=== PATIENT | male | born 1995 | race Caucasian/White ===

== ENCOUNTER 2021-02-19 15:56 | Emergency (ER) | payer BC ==
[2021-02-19] MEDS ORDERED: Ibuprofen 600 MG Tab PO ONE (17:19)
--- NOTE | 2021-02-19 17:22 | EDM.PDOC ---
<Gordo Nieves - Last Filed: 02/19/21 17:22> ED HPI GENERAL MEDICAL PROBLEM - General Chief Complaint: Gastrointestinal Problem Stated Complaint: WAS SEEN IN [facility]/HAS HERNIA Time Seen by Provider: 02/19/21 16:52 - History of Present Illness INITIAL COMMENTS - FREE TEXT/NARRATIVE: Patient presents complaining of left testicular pain and swelling. The patient's states he is always had somewhat of an enlarged left testicle may be 25%. During a routine exam the primary care practitioner found this and advised him to get a follow-up ultrasound and MRI before his next yearly appointment. This incidentally happened to be about 2 weeks ago. There is evidence of variceal and hernia that was supposedly seen on MRI and ultrasound. At that time the scrotum has been slowly enlarging. Over the last couple of days there was significant increase in some pain. No vomiting. Unchanged bowel movements. No fevers. No pain with urination. No discharge. Moderate discomfort without exacerbating or alleviating factors BLQ/scrotum Pain Score (Numeric/FACES): 6 - Related Data Allergies Allergy/AdvReac Type Severity Reaction Status Date / Time No Known Allergies Allergy Verified 02/19/21 16:46 Home Meds: Home Meds . [No Known Home Meds] 02/19/21 [History] Past Medical History HEENT History: Reports: Epistaxis Cardiovascular History: Reports: None Respiratory History: Reports: None Gastrointestinal History: Reports: None Genitourinary History: Reports: Other (See Below) Other Genitourinary History: varicocele Musculoskeletal History: Reports: None Neurological History: Reports: None Psychiatric History: Reports: None Endocrine/Metabolic History: Reports: None Hematologic History: Reports: None Immunologic History: Reports: None Oncologic (Cancer) History: Reports: None Dermatologic History: Reports: None - Infectious Disease History Infectious Disease History: Reports: None - Past Surgical History Head Surgeries/Procedures: Reports: None HEENT Surgical History: Reports: Other (See Below) Other HEENT Surgeries/Procedures: nose caterization Male Surgical History: Reports: None Social & Family History - Family History Family Medical History: No Pertinent Family History - Tobacco Use Tobacco Use Status *Q: Never Tobacco User Second Hand Smoke Exposure: No - Caffeine Use Caffeine Use: Reports: Coffee - Recreational Drug Use Recreational Drug Use: No ED ROS GENERAL - Review of Systems Review Of Systems: See Below Constitutional: Denies: Fever, Chills GI/Abdominal: Denies: Abdominal Pain, Nausea, Vomiting : Denies: Discharge, Dysuria, Flank Pain, Hematuria Musculoskeletal: Denies: Joint Pain Skin: Denies: Rash Neurological: Reports: No Symptoms Hematologic/Lymphatic: Reports: No Symptoms ED EXAM, GENERAL - Physical Exam Exam: See Below Free Text/Narrative:: CONSTITUTIONAL: well appearing in no acute distress SKIN: dry, and intact without rash HENT: Normocephalic, atraumatic, NECK: normal range of motion PULMONARY: normal chest rise and fall, no respiratory distress or stridor GI: Soft, nontender no guarding or rebound or rigidity : Patient has a large testicle on the left side. There is no definitive abnormal lie. There is no erythema to the testicle or the perineum. No marked tenderness NEUROLOGIC: normal speech, moves all extremities, grossly non-focal MUSCULOSKELETAL: no gross deformities, atraumatic PSYCHIATRIC: normal mood and affect Departure - Departure Disposition: Home, Self-Care 01 Clinical Impression: Scrotal pain, Scrotal swelling - Discharge Information Instructions: Scrotal Swelling Referrals: PCP,None [Primary Care Provider] - Forms: ED Department Discharge Additional Instructions: Kassie a disc of your ultrasound to your doctor and have him refer you to the urologist. The radiologist recommends a CT of your scrotum before the urology visit. Return if there is swelling and discoloration with intense pain or fever. [facility] - [facility] [address] [place] [address] [place] [address] The following information is given to patients seen in the emergency department who are being discharged to home. This information is to outline your options for follow-up care. We provide all patients seen in our emergency department with a follow-up referral. The need for follow-up, as well as the timing and circumstances, are variable depending upon the specifics of your emergency department visit. If you don't have a primary care physician on staff, we will provide you with a referral. We always advise you to contact your personal physician following an emergency department visit to inform them of the circumstance of the visit and for follow-up with them and/or the need for any referrals to a consulting specialist. The emergency department will also refer you to a specialist when appropriate. This referral assures that you have the opportunity for follow-up care with a specialist. All of these measure are taken in an effort to provide you with optimal care, which includes your follow-up. Under all circumstances we always encourage you to contact your private physician who remains a resource for coordinating your care. When calling for follow-up care, please make the office aware that this follow-up is from your recent emergency room visit. If for any reason you are refused follow-up, please contact the [facility] Emergency Department at and asked to speak to the emergency department charge nurse. Sepsis Event Note (ED) - Evaluation Sepsis Screening Result: No Definite Risk <Hitesh Fitzpatrick - Last Filed: 02/19/21 19:55> Course - Vital Signs Text/Narrative:: 1954 hrs. the patient is in no acute distress. There is appears to be scar tissue or some of the swelling but could be mesenteric fat herniation in the left scrotum. Patient uses to have a physician refer him to urology in [place] and he is informed that he needs a CT first according to our radiologist. Last Recorded V/S: Last Vital Signs Temp 36.4 C 02/19/21 16:47 Pulse 80 02/19/21 16:47 Resp 18 02/19/21 16:47 BP 139/98 H 02/19/21 16:47 Pulse Ox 98 02/19/21 16:47 - Orders/Labs/Meds Orders: Active Orders 24 hr Category Date Time Status Scrotum and Contents [US] Stat Exams 02/19/21 17:33 Taken CHLAMYDIA AND GONORRHEA BY [facility] Stat Lab 02/19/21 17:17 Ordered Labs: Laboratory Tests 02/19/21 02/19/21 02/19/21 Range/Units 17:45 17:46 17:46 WBC 8.29 (4.0-11.0) K/uL RBC 5.85 (4.50-5.90) M/uL Hgb 18.0 H (13.0-17.0) g/dL Hct 49.3 (38.0-50.0) % MCV 84.3 (80.0-98.0) fL MCH 30.8 (27.0-32.0) pg MCHC 36.5 (31.0-37.0) g/dL RDW Std Deviation 37.9 (28.0-62.0) fl RDW Coeff of Justine 13 (11.0-15.0) % Plt Count 202 (150-400) K/uL MPV 10.90 (7.40-12.00) fL Neut % (Auto) 70.3 (48.0-80.0) % Lymph % (Auto) 18.6 (16.0-40.0) % [place] % (Auto) 8.9 (0.0-15.0) % Eos % (Auto) 1.7 (0.0-7.0) % Baso % (Auto) 0.5 (0.0-1.5) % Neut # (Auto) 5.8 H (1.4-5.7) K/uL Lymph # (Auto) 1.5 (0.6-2.4) K/uL [place] # (Auto) 0.7 (0.0-0.8) K/uL Eos # (Auto) 0.1 (0.0-0.7) K/uL Baso # (Auto) 0.0 (0.0-0.1) K/uL Nucleated RBC % 0.0 /100WBC Nucleated RBCs # 0 K/uL Sodium 138 (136-148) mmol/L Potassium 4.3 (3.5-5.1) mmol/L Chloride 100 (98-107) mmol/L Carbon Dioxide 28.8 (21.0-32.0) mmol/L BUN 11 (7.0-18.0) mg/dL Creatinine 1.0 (0.8-1.3) mg/dL Est Cr Clr Drug Dosing 136.14 mL/min Estimated GFR (MDRD) > 60.0 ml/min Glucose 83 (74-106) mg/dL Lactic Acid (0.4-2.0) mmol/L Calcium 9.2 (8.5-10.1) mg/dL Total Bilirubin 0.7 (0.2-1.0) mg/dL AST 32 (15-37) IU/L ALT 49 (14-63) IU/L Alkaline Phosphatase 71 (46-116) U/L Total Protein 8.3 H (6.4-8.2) g/dL Albumin 5.1 H (3.4-5.0) g/dL Globulin 3.2 (2.6-4.0) g/dL Albumin/Globulin Ratio 1.6 (0.9-1.6) Urine Color YELLOW Urine Appearance CLEAR Urine pH 6.5 (5.0-8.0) Ur Specific Salyer 1.015 (1.001-1.035) Urine Protein NEGATIVE (NEGATIVE) mg/dL Urine Glucose (UA) NEGATIVE (NEGATIVE) mg/dL Urine Ketones NEGATIVE (NEGATIVE) mg/dL Urine Occult Blood NEGATIVE (NEGATIVE) Urine Nitrite NEGATIVE (NEGATIVE) Urine Bilirubin NEGATIVE (NEGATIVE) Urine Urobilinogen 0.2 (<2.0) EU/dL Ur Leukocyte Esterase TRACE H (NEGATIVE) Urine RBC 0-1 (0-2/HPF) Urine WBC 0-2 (0-5/HPF) Ur Epithelial Cells RARE (NONE-FEW) Urine Bacteria FEW (NEGATIVE) 02/19/21 Range/Units 17:46 WBC (4.0-11.0) K/uL RBC (4.50-5.90) M/uL Hgb (13.0-17.0) g/dL Hct (38.0-50.0) % MCV (80.0-98.0) fL MCH (27.0-32.0) pg MCHC (31.0-37.0) g/dL RDW Std Deviation (28.0-62.0) fl RDW Coeff of Justine (11.0-15.0) % Plt Count (150-400) K/uL MPV (7.40-12.00) fL Neut % (Auto) (48.0-80.0) % Lymph % (Auto) (16.0-40.0) % [place] % (Auto) (0.0-15.0) % Eos % (Auto) (0.0-7.0) % Baso % (Auto) (0.0-1.5) % Neut # (Auto) (1.4-5.7) K/uL Lymph # (Auto) (0.6-2.4) K/uL [place] # (Auto) (0.0-0.8) K/uL Eos # (Auto) (0.0-0.7) K/uL Baso # (Auto) (0.0-0.1) K/uL Nucleated RBC % /100WBC Nucleated RBCs # K/uL Sodium (136-148) mmol/L Potassium (3.5-5.1) mmol/L Chloride (98-107) mmol/L Carbon Dioxide (21.0-32.0) mmol/L BUN (7.0-18.0) mg/dL Creatinine (0.8-1.3) mg/dL Est Cr Clr Drug Dosing mL/min Estimated GFR (MDRD) ml/min Glucose (74-106) mg/dL Lactic Acid 1.0 (0.4-2.0) mmol/L Calcium (8.5-10.1) mg/dL Total Bilirubin (0.2-1.0) mg/dL AST (15-37) IU/L ALT (14-63) IU/L Alkaline Phosphatase (46-116) U/L Total Protein (6.4-8.2) g/dL Albumin (3.4-5.0) g/dL Globulin (2.6-4.0) g/dL Albumin/Globulin Ratio (0.9-1.6) Urine Color Urine Appearance Urine pH (5.0-8.0) Ur Specific Salyer (1.001-1.035) Urine Protein (NEGATIVE) mg/dL Urine Glucose (UA) (NEGATIVE) mg/dL Urine Ketones (NEGATIVE) mg/dL Urine Occult Blood (NEGATIVE) Urine Nitrite (NEGATIVE) Urine Bilirubin (NEGATIVE) Urine Urobilinogen (<2.0) EU/dL Ur Leukocyte Esterase (NEGATIVE) Urine RBC (0-2/HPF) Urine WBC (0-5/HPF) Ur Epithelial Cells (NONE-FEW) Urine Bacteria (NEGATIVE) Meds: Medications Discontinued Medications Generic Name Dose Route Start Last Admin Trade Name Freq PRN Reason Stop Dose Admin Ibuprofen 600 mg 02/19/21 17:19 02/19/21 17:34 Ibuprofen 600 Mg Tab PO 02/19/21 17:20 600 mg ONETIME ONE Administration Departure - Departure Time of Disposition: 19:52 Condition: Good Sepsis Event Note (ED) - Focused Exam Vital Signs: Vital Signs Temp Pulse Resp BP Pulse Ox 08/23/21 16:47 36.4 C 80 18 139/98 H 98
[2021-02-19 18:37] LABS: BLOOD UREA NITROGEN,BUN 11 mg/dL (7.0-18.0); CARBON DIOXIDE,CO2 28.8 mmol/L (21.0-32.0); CHLORIDE,CL 100 mmol/L (98-107); GLUCOSE RANDOM 83 mg/dL (74-106); POTASSIUM,K 4.3 mmol/L (3.5-5.1); SODIUM,NA 138 mmol/L (136-148)
--- NOTE | 2021-02-19 19:36 | US ---
INDICATION: Enlarged left testicle. TECHNIQUE: Ultrasound of the scrotum and contents. Sonographic cornelius scale images were obtained with spectral and color Doppler imaging of the testicles. COMPARISON: None available. FINDINGS: Right testicle: Measures 4.3 x 4.5 x 2.3 cm. Normal echotexture. No masses. No suspicious calcifications. Normal arterial and venous color Doppler blood flow. Left testicle: Measures 4.3 x 3.1 x 2.2 cm. Normal echotexture. No masses. No suspicious calcifications. Normal arterial and venous and color Doppler blood flow. Epididymis: Unremarkable bilaterally. Normal blood flow. Other: On the left there is, slightly hyperechoic tissue/mass surrounding the testicle and measuring up to 4.2 cm in thickness. No vascularity is detected within. No hydrocele or varicocele bilaterally. Scrotal wall is normal. IMPRESSION: 1. No testicular mass or evidence of infection. 2. There is abnormal tissue surrounding the left testicle measuring up to 3.2 cm in thickness. This could possibly be due to herniation of mesenteric fat into the scrotum. Recommend CT for further evaluation. Dictated by Kim Fagan MD @ 02/19/2021 7:35:[address] Kim Fagan @ Feb 19 2021 7:35PM
--- NOTE | 2021-02-20 09:58 | US ---
EXAM DATE: 02/19/21 PATIENT'S AGE: 25 Patient: NURIS WILKINS Facility: [facility] . Site : 1995 Study: US-Testicle -02/19/2021 6:49:39 PM Ordering Physician: Lizbeth Caro Final Report: INDICATION: Enlarged left testicle. TECHNIQUE: Ultrasound of the scrotum and contents. Sonographic cornelius scale images were obtained with spectral and color Doppler imaging of the testicles. COMPARISON: None available. FINDINGS: Right testicle: Measures 4.3 x 4.5 x 2.3 cm. Normal echotexture. No masses. No suspicious calcifications. Normal arterial and venous color Doppler blood flow. Left testicle: Measures 4.3 x 3.1 x 2.2 cm. Normal echotexture. No masses. No suspicious calcifications. Normal arterial and venous and color Doppler blood flow. Epididymis: Unremarkable bilaterally. Normal blood flow. Other: On the left there is, slightly hyperechoic tissue/mass surrounding the testicle and measuring up to 4.2 cm in thickness. No vascularity is detected within. No hydrocele or varicocele bilaterally. Scrotal wall is normal. IMPRESSION: 1. No testicular mass or evidence of infection. 2. There is abnormal tissue surrounding the left testicle measuring up to 3.2 cm in thickness. This could possibly be due to herniation of mesenteric fat into the scrotum. Recommend CT for further evaluation. Dictated by Kim Fagan MD @ 02/19/2021 7:35:28 PM Signed by: Kim Fagan MD @02/19/2021 7:35:28 PM (Electronic Signature) Report Signed by Proxy. [facility]
== END 2021-02-19 20:06 | disposition home or self-care (01) ==
LOC: MW.ED 15:56
DX: N50.82 Scrotal pain (principal); N50.89 Other specified disorders of the male genital organs
CPT/HCPCS: 36415; 76870; 80053; 81001; 83605; 85025; 93976; 99284; A9270